=== PATIENT | female | born 1985 | race Native Hawaiian/Other Pacific Islander ===

== ENCOUNTER → 2018-02-01 | Outpatient (CLI) | payer BC | LOC: GMAJ 14:53 | PROVIDERS: ATTEND Family Medicine | DX: R10.84 Generalized abdominal pain (principal); E03.9 Hypothyroidism, unspecified ==

== ENCOUNTER → 2019-05-01 | Outpatient (CLI) | payer BC | LOC: GMAJ 14:13 | PROVIDERS: ATTEND Family Medicine | DX: E03.9 Hypothyroidism, unspecified (principal); Z79.899 Other long term (current) drug therapy ==